=== PATIENT | male | born 1960 | race Caucasian/White ===

== ENCOUNTER 2019-07-06 14:45 | Emergency (ER) | payer BC ==
[2019-07-06 15:20] LABS: ALT 24 U/L (21-72); AST 26 U/L (17-59); African American GFR (CKD) >90 (>60 ml/min/1.73 sqM); Albumin 4.2 g/dL (3.5-5.0); Alkaline Phosphatase 85 U/L (38-126); Anion Gap 9 mmol/L; Blood Urea Nitrogen 17 mg/dL (9-20); Calcium 9.5 mg/dL (8.4-10.2); Carbon Dioxide 23 mmol/L (22-30); Chloride 109 mmol/L (98-107); Glucose 104 mg/dL (74-99); Potassium 4.4 mmol/L (3.5-5.1); Sodium 141 mmol/L (137-145); Total Bilirubin 0.6 mg/dL (0.2-1.3); Total Protein 7.2 g/dL (6.3-8.2)
[2019-07-06 15:26] LABS: Basophils # (A) 0.1 k/uL (0-0.2); Basophils % (A) 1 %; Eosinophils # (A) 0.1 k/uL (0-0.7); Eosinophils % (A) 1 %; HCT 43.5 % (39.0-53.0); HGB 14.5 gm/dL (13.0-17.5); Lymphocytes # (A) 1.4 k/uL (1.0-4.8); Lymphocytes % (A) 13 %; MCH 31.8 pg (25.0-35.0); MCHC 33.3 g/dL (31.0-37.0); MCV 95.7 fL (80.0-100.0); Mean Platelet Volume 7.3; Monocytes # (A) 0.6 k/uL (0-1.0); Monocytes % (A) 5 %; Neutrophils # (A) 8.5 k/uL (1.3-7.7); Neutrophils % (A) 79 %; Platelet Count 240 k/uL (150-450); RBC 4.55 m/uL (4.30-5.90); RDW 14.6 % (11.5-15.5); WBC 10.8 k/uL (3.8-10.6)
[2019-07-06 15:31] LABS: INR 0.9 (<1.2); Partial Thromboplastin Time 23.4 sec (22.0-30.0)
[2019-07-06] MEDS ORDERED: methylPREDNISolone SOD SUCCI 125 MG/2 ML VIAL IV STA (15:34)
[2019-07-06] MEDS ORDERED: diphenhydrAMINE 50 MG/ML 1 ML VIAL IVP STA (15:34)
[2019-07-06] MEDS ORDERED: FAMOTIDINE 20 MG/2 ML VIAL IV STA (15:34)
--- NOTE | 2019-07-06 15:40 | CT ---
EXAMINATION TYPE: CT brain wo con for TPA DATE OF EXAM: 07/06/2019 COMPARISON: None HISTORY: Right sided weakness. CT DLP: 1154.[address] of the brain was performed. The ventricles, basal cisterns and sulci overlying the cerebral convexities demonstrate mild enlargem ent. There is no evidence for intracranial hemorrhage or sulcal effacement. There is decreased attenuation about the periventricular white matter and deep white matter of both c erebral hemispheres, compatible with chronic small vessel ischemia. Differential diagnosis does inclu de demyelination. No mass effects are seen.No midline shift. Osseous calvarium is intact. If symptoms persist consider MRI. IMPRESSION: 1. Age related atrophic and chronic small vessel ischemic change without acute intracranial process s een at this time.
--- NOTE | 2019-07-06 15:40 | ED ---
General Adult HPI - General Chief complaint: Neuro Symptoms/Deficit Stated complaint: Poss Stroke Time Seen by Provider: 07/06/19 14:49 Source: patient, EMS, RN notes reviewed Mode of arrival: EMS Limitations: language barrier, altered mental status - History of Present Illness Initial comments: Patient is a pleasant 58-year-old male presenting to the emergency department with concerns for stroke. Onset of symptoms. EMS was a proximally 15 minutes p rior to being called. Patient has a different history. Patient does have expressive aphasia. Patient does appear to be answering questions affirmatively and negative correctly. Patient has difficulty with speech on top of this however. Patient believes his symptoms started yesterday afternoon. No family is present or coworkers are present at this time. Patient states he does not feel confused however does admit that his words are not coming out correctly. Patient does admit to having right-sided weakness. No history of similar symptoms previously. Patient denies any pain or injury. - Related Data Home Medications Medication Instructions Recorded Confirmed No Known Home Medications 07/06/19 07/06/19 Allergies Allergy/AdvReac Type Severity Reaction Status Date / Time iodine Allergy Swelling Verified 07/06/19 15:22 Review of Systems ROS Statement: Those systems with pertinent positive or pertinent negative responses have been documented in the HPI. ROS Other: All systems not noted in ROS Statement are negative. Constitutional: Denies: fever Eyes: Denies: eye pain ENT: Denies: ear pain Respiratory: Denies: cough Cardiovascular: Denies: chest pain Endocrine: Denies: fatigue Gastrointestinal: Denies: abdominal pain Genitourinary: Denies: dysuria Musculoskeletal: Denies: back pain Skin: Denies: rash Neurological: Reports: weakness. Denies: headache Past Medical History Past Medical History: No Reported History History of Any Multi-Drug Resistant Organisms: Unobtainable Past Surgical History: No Surgical Hx Reported Past Psychological History: Unable to Obtain Smoking Status: Current every day smoker Past Alcohol Use History: Daily Past Drug Use History: None Reported General Exam Limitations: language barrier, altered mental status General appearance: alert, in no apparent distress Head exam: Present: atraumatic Eye exam: Present: normal appearance, PERRL, EOMI. Absent: nystagmus ENT exam: Present: normal oropharynx Neck exam: Present: normal inspection Respiratory exam: Present: normal lung sounds bilaterally Cardiovascular Exam: Present: regular rate, normal rhythm GI/Abdominal exam: Present: soft. Absent: tenderness Extremities exam: Present: normal inspection Neurological exam: Present: alert, altered Expanded Neurological exam: Present: protecting the airway Patient oriented to: Present: person. Absent: place, time Speech: Present: expressive aphasia Cranial nerves: EOM's Intact: Normal, Facial Sensation: Normal Sensory exam: Upper Extremity Light Touch: Abnormal Right, Lower Extremity Light Touch: Normal Motor strength exam: RUE: 4, LUE: 5, RLE: 4, LLE: 5 Eye Response: (4) open spontaneously Motor Response: (6) obeys commands Verbal Response: (4) confused conversation Psychiatric exam: Present: normal affect, normal mood Skin exam: Present: normal color Course Vital Signs 07/06/19 07/06/19 07/06/19 14:50 15:05 15:20 Temperature Pulse Rate 98 96 97 Respiratory 18 18 18 Rate Blood Pressure 185/92 168/90 175/94 O2 Sat by Pulse 96 95 98 Oximetry 07/06/19 07/06/19 07/06/19 15:30 15:45 16:00 Temperature 98 F Pulse Rate 89 90 82 Respiratory 18 18 18 Rate Blood Pressure 147/85 144/82 161/93 O2 Sat by Pulse 99 99 Oximetry - Reevaluation(s) Reevaluation #1: 07/06/19 15:38 Last known well was up to 24 hours ago. Case was discussed in detail with Dr. Dmuont, who does not feel patient is a TPA candidate secondary to unknown onset. Nursing staff did talk with and established a last known well time was last night. This still puts patient outside of the TPA window. 07/06/19 16:25 Call was received from radiologist with concern for left-sided M1 MCA occlusion. Case was again discussed with Dr. dumont, who did review films and request transfer to [facility]. Case was also discussed with Dr. Felder, who will accept transfer. 07/06/19 16:27 Patient and family updated. EKG Findings - EKG Comments: EKG Findings:: Normal sinus rhythm 100. GA 162. QRS 106. QT 360. QTC 464. Normal axis. Normal QRS. No acute ST change. Medical Decision Making - Lab Data Result diagrams: 07/06/19 15:00 07/06/19 15:00 Lab Results 07/06/19 07/06/19 07/06/19 Range/Units 15:00 15:00 15:00 WBC 10.8 H (3.8-10.6) k/uL RBC 4.55 (4.30-5.90) m/uL Hgb 14.5 (13.0-17.5) gm/dL Hct 43.5 (39.0-53.0) % MCV 95.7 (80.0-100.0) fL MCH 31.8 (25.0-35.0) pg MCHC 33.3 (31.0-37.0) g/dL RDW 14.6 (11.5-15.5) % Plt Count 240 (150-450) k/uL Neutrophils % 79 % Lymphocytes % 13 % Monocytes % 5 % Eosinophils % 1 % Basophils % 1 % Neutrophils # 8.5 H (1.3-7.7) k/uL Lymphocytes # 1.4 (1.0-4.8) k/uL Monocytes # 0.6 (0-1.0) k/uL Eosinophils # 0.1 (0-0.7) k/uL Basophils # 0.1 (0-0.2) k/uL PT 10.0 (9.0-12.0) sec INR 0.9 (<1.2) APTT 23.4 (22.0-30.0) sec Sodium 141 (137-145) mmol/L Potassium 4.4 (3.5-5.1) mmol/L Chloride 109 H (98-107) mmol/L Carbon Dioxide 23 (22-30) mmol/L Anion Gap 9 mmol/L BUN 17 (9-20) mg/dL Creatinine 0.78 (0.66-1.25) mg/dL Est GFR (CKD-EPI)AfAm >90 (>60 ml/min/1.73 sqM) Est GFR (CKD-EPI)NonAf >90 (>60 ml/min/1.73 sqM) Glucose 104 H (74-99) mg/dL Calcium 9.5 (8.4-10.2) mg/dL Total Bilirubin 0.6 (0.2-1.3) mg/dL AST 26 (17-59) U/L ALT 24 (21-72) U/L Alkaline Phosphatase 85 (38-126) U/L Troponin I (0.000-0.034) ng/mL Total Protein 7.2 (6.3-8.2) g/dL Albumin 4.2 (3.5-5.0) g/dL 07/06/19 Range/Units 15:00 WBC (3.8-10.6) k/uL RBC (4.30-5.90) m/uL Hgb (13.0-17.5) gm/dL Hct (39.0-53.0) % MCV (80.0-100.0) fL MCH (25.0-35.0) pg MCHC (31.0-37.0) g/dL RDW (11.5-15.5) % Plt Count (150-450) k/uL Neutrophils % % Lymphocytes % % Monocytes % % Eosinophils % % Basophils % % Neutrophils # (1.3-7.7) k/uL Lymphocytes # (1.0-4.8) k/uL Monocytes # (0-1.0) k/uL Eosinophils # (0-0.7) k/uL Basophils # (0-0.2) k/uL PT (9.0-12.0) sec INR (<1.2) APTT (22.0-30.0) sec Sodium (137-145) mmol/L Potassium (3.5-5.1) mmol/L Chloride (98-107) mmol/L Carbon Dioxide (22-30) mmol/L Anion Gap mmol/L BUN (9-20) mg/dL Creatinine (0.66-1.25) mg/dL Est GFR (CKD-EPI)AfAm (>60 ml/min/1.73 sqM) Est GFR (CKD-EPI)NonAf (>60 ml/min/1.73 sqM) Glucose (74-99) mg/dL Calcium (8.4-10.2) mg/dL Total Bilirubin (0.2-1.3) mg/dL AST (17-59) U/L ALT (21-72) U/L Alkaline Phosphatase (38-126) U/L Troponin I <0.012 (0.000-0.034) ng/mL Total Protein (6.3-8.2) g/dL Albumin (3.5-5.0) g/dL Critical Care Time Critical Care Time: Yes Total Critical Care Time: 31 Disposition Clinical Impression: Cerebrovascular accident Disposition: OTHER INSTITUTION NOT DEFINED Is patient prescribed a controlled substance at d/c from ED?: No Referrals: None,Stated [Primary Care Provider] - 1-2 days Time of Disposition: 16:27 - Out of Hospital Transfer - Req. Specs Out of Hospital Transfer - Requested Specifics: Other Emergency Center
[2019-07-06 15:41] VITALS: RESP 18
[2019-07-06] MEDS ORDERED: ATORVASTATIN 80 MG TAB PO STA ×2 (15:52→16:26)
[2019-07-06] MEDS ORDERED: ASPIRIN 81 MG PO STA ×2 (15:52→16:25)
[2019-07-06 16:09] VITALS: TEMP 98
--- NOTE | 2019-07-06 16:09 | CT ---
EXAMINATION TYPE: CT angio head neck DATE OF EXAM: 07/06/2019 HISTORY: Right sided weakness. COMPARISON: CT of the head dated 07/06/2019 CT DLP: mGycm. Automated Exposure Control for Dose Reduction was Utilized. TECHNIQUE: CTA scan of the neck is performed with IV Contrast, patient injected with 50 mL of Isovue 370, axial images are obtained, coronal and sagittal reformatted images are reviewed. Three-D recons tructed images are created on an independent workstation and reviewed. FINDINGS: Severe narrowing or occlusion in the proximal left M1 which is best seen on axial imaging slice 26. T here is asymmetric enhancement of the cortical veins along the left frontal and parietal lobes, which is best seen on images 28-37. Contrast within the remaining portions of the anterior, middle and posterior cerebral arteries is sub optimal, but there does not appear to be a large aneurysm or occlusion. Mild calcified atheromatous plaques are seen at the origin of the great vessels. Bilateral common car otid arteries are patent. Calcified atheromatous plaques are seen at the origin of the bilateral inte rnal carotid arteries, slightly greater on the left causing less than 50% stenosis. Bilateral interna l carotid arteries are patent. Visualized upper lungs are clear. Mild emphysema in the lung apices. Multilevel cervical spondylosis most severe at C6-7 and C7-T1. IMPRESSION: Poor contrast bolus. Findings suggestive of left proximal M1 occlusion. Correlation with patient history of onset of sympt oms and consider interventional neuroradiology consultation for clot removal. These findings were discussed with Dr. Colin by Dr. Cherry at 3:57 PM on 07/06/2019.
[2019-07-06] MEDS ORDERED: TICAGRELOR 90 MG TAB PO STA (16:27)
[2019-07-06] MEDS ORDERED: SODIUM CHLORIDE 0.9% 500 ML 500 ML IV STA (16:39)
[2019-07-06] MEDS ORDERED: SODIUM CHLORIDE 0.9% 500 ML 500 ML IV ONE (16:40)
[2019-07-06 16:47] VITALS: BP 185/110; PULSE 80
--- NOTE | 2019-07-06 16:48 | XR ---
EXAMINATION TYPE: XR chest 1V portable DATE OF EXAM: 07/06/2019 COMPARISON: NONE HISTORY: Short of breath TECHNIQUE: Single frontal view of the chest is obtained. FINDINGS: There is no heart failure nor confluent pneumonic infiltrate. There is some mild linear in terstitial density at the lung bases. There are chest leads. IMPRESSION: No heart failure. Pulmonary fibrotic changes and subsegmental atelectasis at the lung ba ses.
== END 2019-07-06 16:50 | disposition other institution (70) ==
LOC: EC 14:45
DX: I63.9 Cerebral infarction, unspecified (principal); R29.709 NIHSS score 9; F17.200 Nicotine dependence, unspecified, uncomplicated; Z91.048 Other nonmedicinal substance allergy status
CPT/HCPCS: 96374; 96375 ×2; 36415; 93005; 80053; 84484; 85025; 85610; 85730; 71045; 70496; 70450; 70498; 99291; J1200; J2930; Q9967

== ENCOUNTER → 2022-01-02 | Outpatient (CLI) | payer BC ==
[2022-01-03 16:21] LABS: Cotinine 367.1 ng/mL (<2.0)
== END | disposition home or self-care (01) ==
LOC: LABWHC1 14:07
PROVIDERS: ATTEND Physician Assistant Medical
DX: Z00.00 Encounter for general adult medical examination without abnormal findings (principal); N52.01 Erectile dysfunction due to arterial insufficiency
CPT/HCPCS: 36415; 80323; 84153

== ENCOUNTER 2022-02-01 08:24 | Day surgery (SDC) | payer BC ==
[2022-01-30 16:04] VITALS: BMI 22.4
[~2022-02-01 08:24] MED LIST: LACTATED RINGERS 1,000 ML IV SCH
[2022-02-01 09:07] VITALS: RESP 16; TEMP 98
[2022-02-01] MEDS ORDERED: LIDOCAINE 1% (10MG/ML) FOR IV START INTRADERMA ONE (09:07)
--- NOTE | 2022-02-01 09:23 | P.GSHP ---
History of Present Illness H&P Date: 02/01/22 Chief Complaint: Screening colonoscopy This a 61-year-old male presents today for screening colonoscopy. Patient denies any significant GI complaints. Past Medical History Past Medical History: CVA/TIA, Hyperlipidemia, Hypertension Additional Past Medical History / Comment(s): STROKE 2019-NO RESIDUAL EFFECTS History of Any Multi-Drug Resistant Organisms: None Reported Past Surgical History: Orthopedic Surgery Additional Past Surgical History / Comment(s): VALENTINO CARP TUNNEL REP. RING FINGER SURGERY, ELECTROCUTED AND RING MELTED TO FINGER Past Anesthesia/Blood Transfusion Reactions: No Reported Reaction Past Psychological History: No Psychological Hx Reported Smoking Status: Former smoker Past Alcohol Use History: Occasional Past Drug Use History: Marijuana Medications and Allergies Home Medications Medication Instructions Recorded Confirmed Type Aspirin [Adult Low Dose Aspirin EC] 81 mg PO DAILY 01/30/22 02/01/22 History Atorvastatin [Lipitor] 80 mg PO HS 01/30/22 02/01/22 History Chlorthalidone [Hygroton] 12.5 mg PO DAILY 01/30/22 02/01/22 History amLODIPine [Norvasc] 5 mg PO DAILY 01/30/22 02/01/22 History Allergies Allergy/AdvReac Type Severity Reaction Status Date / Time codeine Allergy Rash/Hives Verified 02/01/22 09:02 iodine Allergy Swelling Verified 02/01/22 09:02 shellfish derived [Shellfish] Allergy Swelling Verified 02/01/22 09:02 Surgical - Exam Vital Signs Temp Pulse Resp BP Pulse Ox 98.0 F 63 16 157/77 98 02/01/22 09:06 02/01/22 09:06 02/01/22 09:06 02/01/22 09:06 02/01/22 09:06 - General well developed, well nourished, no distress - Eyes PERRL - ENT normal pinna - Neck no masses - Respiratory normal expansion - Cardiovascular Rhythm: regular - Abdomen Abdomen: soft, non tender Assessment and Plan Assessment: We'll perform screening colonoscopy
[2022-02-01] MEDS ORDERED: PROPOFOL 10 MG/ML 20 ML VIAL IV ONE (09:27)
--- NOTE | 2022-02-01 09:44 | P.OP ---
Date of Procedure: 02/01/22 Preoperative Diagnosis: Screening colonoscopy Postoperative Diagnosis: Normal colon Procedure(s) Performed: Colonoscopy Pathology: none sent Condition: stable Disposition: PACU Description of Procedure: PROCEDURE: The patient was placed on the endoscopy table in the lateral position. Digital rectal examination was performed which revealed no abnorma lities. The prostate was symmetrical without nodules. Flexible colonoscope was then placed in the patient's anus and passed throughout the entire colon. The ileocecal valve was visualized. The cecum, ascending, transverse, descending and sigmoid colon were normal. The rectum was normal as well. There were no masses, polyps or diverticula noted in the entire colon. SUMMARY OF FINDINGS: Normal colonoscopy.
[2022-02-01 10:03] VITALS: BP 117/73; PULSE 60
== END 2022-02-01 10:30 | disposition home or self-care (01) ==
LOC: ORWHC2ENDO 08:24
PROVIDERS: ATTEND Surgery
DX: Z12.11 Encounter for screening for malignant neoplasm of colon (principal); E78.5 Hyperlipidemia, unspecified; I10 Essential (primary) hypertension; Z86.73 Personal history of transient ischemic attack (TIA), and cerebral infarction without residual deficits; Z87.891 Personal history of nicotine dependence; Z98.890 Other specified postprocedural states; Z79.82 Long term (current) use of aspirin; Z79.899 Other long term (current) drug therapy; Z88.8 Allergy status to other drugs, medicaments and biological substances; Z88.5 Allergy status to narcotic agent; Z91.013 Allergy to seafood; Z97.2 Presence of dental prosthetic device (complete) (partial)
CPT/HCPCS: J2704; G0121; 45378

== ENCOUNTER 2023-07-24 16:44 | Emergency (ER) | payer BC ==
[2023-07-24 16:51] VITALS: TEMP 98.1
[2023-07-24 18:17] LABS: ALT 29 U/L (4-49); AST 31 U/L (17-59); African American GFR (CKD) >90 (>60 ml/min/1.73 sqM); Albumin 4.4 g/dL (3.5-5.0); Alkaline Phosphatase 78 U/L (38-126); Anion Gap 9 mmol/L; Blood Urea Nitrogen 18 mg/dL (9-20); Calcium 9.6 mg/dL (8.4-10.2); Carbon Dioxide 27 mmol/L (22-30); Chloride 102 mmol/L (98-107); Glucose 94 mg/dL (74-99); INR 0.9 (<1.2); Non-African American GFR(CKD) >90 (>60 ml/min/1.73 sqM); Potassium 3.7 mmol/L (3.5-5.1); Prothrombin Time 9.8 sec (9.0-12.0); Sodium 138 mmol/L (137-145); Total Bilirubin 0.8 mg/dL (0.2-1.3); Total Protein 7.3 g/dL (6.3-8.2)
[2023-07-24 18:19] LABS: Basophils % (A) 1 %; Eosinophils # (A) 0.2 k/uL (0-0.7); Eosinophils % (A) 2 %; HCT 47.4 % (39.0-53.0); HGB 16.5 gm/dL (13.0-17.5); Lymphocytes # (A) 1.6 k/uL (1.0-4.8); Lymphocytes % (A) 19 %; MCH 33.2 pg (25.0-35.0); MCHC 34.8 g/dL (31.0-37.0); MCV 95.5 fL (80.0-100.0); Mean Platelet Volume 7.6; Monocytes # (A) 0.7 k/uL (0-1.0); Monocytes % (A) 8 %; Neutrophils # (A) 5.7 k/uL (1.3-7.7); Neutrophils % (A) 68 %; Platelet Count 230 k/uL (150-450); RBC 4.96 m/uL (4.30-5.90); RDW 12.9 % (11.5-15.5); WBC 8.3 k/uL (3.8-10.6)
[2023-07-24 18:25] LABS: NT-Pro-B-Type Natriuretic Pept 86 pg/mL
--- NOTE | 2023-07-24 18:25 | ED ---
SOB HPI - General Chief Complaint: Shortness of Breath Stated Complaint: POSS BLOOD CLOT IN LUNG SENT BY PCP Time Seen by Provider: 07/24/23 16:52 Source: patient Mode of arrival: ambulatory Limitations: no limitations - History of Present Illness Initial Comments: 62-year-old male with past medical history of CVA who presents to the emergency department reporting pleuritic chest pain. States that for the past couple of days he has had left-sided chest pain with inspiration. Denies fevers, chills or cough. No history of PE or DVT. No lower extremity swelling. Denies history of coronary disease. Denies any chest wall trauma. He did go to his primary care office who felt that he needed to be evaluated for a PE and therefore was told to go to the emergency department. She does not take any blood thinners. No other alleviating, precipitating or modifying factors - Related Data Home Medications Medication Instructions Recorded Confirmed Aspirin [Adult Low Dose Aspirin EC] 81 mg PO DAILY 01/30/22 02/01/22 Atorvastatin [Lipitor] 80 mg PO HS 01/30/22 02/01/22 Chlorthalidone [Hygroton] 12.5 mg PO DAILY 01/30/22 02/01/22 amLODIPine [Norvasc] 5 mg PO DAILY 01/30/22 02/01/22 Previous Rx's Medication Instructions Recorded Albuterol Inhaler [Ventolin Hfa 2 puff INHALATION Q4HR #8 gm 07/24/23 Inhaler] Ibuprofen [Motrin] 800 mg PO Q8HR #30 tab 07/24/23 Allergies Allergy/AdvReac Type Severity Reaction Status Date / Time codeine Allergy Rash/Hives Verified 07/24/23 16:51 iodine Allergy Swelling Verified 07/24/23 16:51 shellfish derived [Shellfish] Allergy Swelling Verified 07/24/23 16:51 Review of Systems ROS Statement: Those systems with pertinent positive or pertinent negative responses have been documented in the HPI. ROS Other: All systems not noted in ROS Statement are negative. Past Medical History Past Medical History: CVA/TIA, Hyperlipidemia, Hypertension Additional Past Medical History / Comment(s): STROKE 2019-NO RESIDUAL EFFECTS History of Any Multi-Drug Resistant Organisms: None Reported Past Surgical History: Orthopedic Surgery Additional Past Surgical History / Comment(s): VALENTINO CARP TUNNEL REP. RING FINGER SURGERY, ELECTROCUTED AND RING MELTED TO FINGER Past Anesthesia/Blood Transfusion Reactions: No Reported Reaction Past Psychological History: No Psychological Hx Reported Smoking Status: Former smoker Past Alcohol Use History: Daily Past Drug Use History: Marijuana General Exam Limitations: no limitations General appearance: alert, in no apparent distress Head exam: Present: atraumatic, normocephalic, normal inspection Eye exam: Present: normal appearance, PERRL, EOMI. Absent: scleral icterus, conjunctival injection, periorbital swelling ENT exam: Present: normal exam, mucous membranes moist Neck exam: Present: normal inspection. Absent: tenderness, meningismus, lymphadenopathy Respiratory exam: Present: normal lung sounds bilaterally. Absent: respiratory distress, wheezes, rales, rhonchi, stridor Cardiovascular Exam: Present: regular rate, normal rhythm, normal heart sounds. Absent: systolic murmur, diastolic murmur, rubs, gallop, clicks GI/Abdominal exam: Present: soft, normal bowel sounds. Absent: distended, tenderness, guarding, rebound, rigid Extremities exam: Present: normal inspection, full ROM, normal capillary refill. Absent: tenderness, pedal edema, joint swelling, calf tenderness Back exam: Present: normal inspection Neurological exam: Present: alert, oriented X3, CN II-XII intact Psychiatric exam: Present: normal affect, normal mood Skin exam: Present: warm, dry, intact, normal color. Absent: rash Course Vital Signs 07/24/23 07/24/23 07/24/23 16:47 19:10 19:52 Temperature 98.1 F 98.1 F Pulse Rate 88 71 Respiratory 18 15 Rate Blood Pressure 163/94 157/92 O2 Sat by Pulse 95 94 L Oximetry Medical Decision Making - Medical Decision Making Was pt. sent in by a medical professional or institution (, PA, NETWORK INFRASTRUCTURE ARCHITECT, urgent care, hospital, or [facility]...) When possible be specific @ -Yes patient was sent in by his primary care office Did you speak to anyone other than the patient for history (EMS, parent, family, police, friend...)? What history was obtained from this source @ -No Did you review nursing and triage notes (agree or disagree)? Why? @ -I reviewed and agree with nursing and triage notes Were old charts reviewed (outside hosp., previous admission, EMS record, old EKG, old radiological studies, urgent care reports/EKG's, [facility] records)? Report findings @ -No old charts were reviewed Differential Diagnosis (chest pain, altered mental status, abdominal pain women, abdominal pain men, vaginal bleeding, weakness, fever, dyspnea, syncope, headache, dizziness, GI bleed, back pain, seizure, CVA, palpatations, mental health, musculoskeletal)? @ -Differential Chest Pain: Stable Angina, Unstable Angina, STEMI, NSTEMI Aortic Dissection, Pneumothorax, Musculoskeletal, Esophageal Spasm GERD, Cholecystitis, Pancreatitis, Zoster, this is not meant to be an all-inclusive list. EKG interpreted by me (3pts min.). @ -Yes and demonstrates sinus rhythm at a rate of 71. IN interval 157. QRS 99. QTC of 426. No acute ST segment elevations or depressions X-rays interpreted by me (1pt min.). @ -Yes and demonstrates no acute process CT interpreted by me (1pt min.). @ -None done U/S interpreted by me (1pt. min.). @ -None done What testing was considered but not performed or refused? (CT, X-rays, U/S, labs)? Why? @ -CT was considered however the patient has a negative d-dimer when age-ad justed What meds were considered but not given or refused? Why? @ -None Did you discuss the management of the patient with other professionals ( professionals i.e. , PA, NETWORK INFRASTRUCTURE ARCHITECT, lab, RT, psych nurse, director social, echometer engineer, teacher, forward air controller/air officer, counseling case manager)? Give summary @ -No Was smoking cessation discussed for >3mins.? @ -No Was critical care preformed (if so, how long)? @ -No Were there social determinants of health that impacted care today? How? (Homelessness, low income, unemployed, alcoholism, drug addiction, transpo rtation, low edu. Level, literacy, decrease access to med. care, [facility], rehab)? @ -No Was there de-escalation of care discussed even if they declined (Discuss DNR or withdrawal of care, Hospice)? DNR status @ -No What co-morbidities impacted this encounter? (DM, HTN, Smoking, COPD, CAD, Cancer, CVA, ARF, Chemo, Hep., AIDS, mental health diagnosis, sleep apnea, morbid obesity)? @ -None Was patient admitted / discharged? Hospital course, mention meds given and route, prescriptions, significant lab abnormalities, going to OR and other pertinent info. @ -Upon arrival patient was placed in room 5. A thorough history and physical exam was performed. IV access was established and laboratory studies were conducted. 12-lead EKG was obtained. Patient does have a low probability for PE and therefore a d-dimer is obtained which is negative when age-adjusted. Zarina st x-ray was performed. Results are reviewed with the patient. Patient has no signs of PE at this time. Results are discussed with the patient. States that he did have some improvement in his pain with Motrin and therefore patient will be placed on Motrin the outpatient setting with suspicion of the patient's symptoms are consistent with pleurisy. I also prescribed an inhaler. He is instructed to take the medications as directed. Follow-up with his doctor for further testing return for any new or worsening symptoms per patient was agreeable plan he was discharged in stable condition Undiagnosed new problem with uncertain prognosis? @ -Yes Drug Therapy requiring intensive monitoring for toxicity (Heparin, Nitro, Insulin, Cardizem)? @ -No Were any procedures done? @ -No Diagnosis/symptom? @ -Acute pleuritic chest pain Acute, or Chronic, or Acute on Chronic? @ -Acute Uncomplicated (without systemic symptoms) or Complicated (systemic symptoms)? @ -Complicated Side effects of treatment? @ -No Exacerbation, Progression, or Severe Exacerbation? @ -No Poses a threat to life or bodily function? How? (Chest pain, [place], [place], pneumonia, PE, COPD, DKA, ARF, appy, cholecystitis, CVA, Diverticulitis, Homicidal, Suicidal, threat to staff... and all critical care pts) @ -No - Lab Data Result diagrams: 07/24/23 17:47 07/24/23 17:47 Lab Results 07/24/23 07/24/23 07/24/23 Range/Units 17:47 17:47 17:47 WBC 8.3 (3.8-10.6) k/uL RBC 4.96 (4.30-5.90) m/uL Hgb 16.5 (13.0-17.5) gm/dL Hct 47.4 (39.0-53.0) % MCV 95.5 (80.0-100.0) fL MCH 33.2 (25.0-35.0) pg MCHC 34.8 (31.0-37.0) g/dL RDW 12.9 (11.5-15.5) % Plt Count 230 (150-450) k/uL MPV 7.6 Neutrophils % 68 % Lymphocytes % 19 % Monocytes % 8 % Eosinophils % 2 % Basophils % 1 % Neutrophils # 5.7 (1.3-7.7) k/uL Lymphocytes # 1.6 (1.0-4.8) k/uL Monocytes # 0.7 (0-1.0) k/uL Eosinophils # 0.2 (0-0.7) k/uL Basophils # 0.0 (0-0.2) k/uL PT 9.8 (9.0-12.0) sec INR 0.9 (<1.2) APTT 23.0 (22.0-30.0) sec D-Dimer 0.56 (<0.60) mg/L FEU Sodium 138 (137-145) mmol/L Potassium 3.7 (3.5-5.1) mmol/L Chloride 102 (98-107) mmol/L Carbon Dioxide 27 (22-30) mmol/L Anion Gap 9 mmol/L BUN 18 (9-20) mg/dL Creatinine 0.84 (0.66-1.25) mg/dL Est GFR (CKD-EPI)AfAm >90 (>60 ml/min/1.73 sqM) Est GFR (CKD-EPI)NonAf >90 (>60 ml/min/1.73 sqM) Glucose 94 (74-99) mg/dL Plasma Lactic Acid Bonifacio (0.7-2.0) mmol/L Calcium 9.6 (8.4-10.2) mg/dL Total Bilirubin 0.8 (0.2-1.3) mg/dL AST 31 (17-59) U/L ALT 29 (4-49) U/L Alkaline Phosphatase 78 (38-126) U/L Troponin I (0.000-0.034) ng/mL NT-Pro-B Natriuret Pep 86 pg/mL Total Protein 7.3 (6.3-8.2) g/dL Albumin 4.4 (3.5-5.0) g/dL 07/24/23 07/24/23 Range/Units 17:47 17:47 WBC (3.8-10.6) k/uL RBC (4.30-5.90) m/uL Hgb (13.0-17.5) gm/dL Hct (39.0-53.0) % MCV (80.0-100.0) fL MCH (25.0-35.0) pg MCHC (31.0-37.0) g/dL RDW (11.5-15.5) % Plt Count (150-450) k/uL MPV Neutrophils % % Lymphocytes % % Monocytes % % Eosinophils % % Basophils % % Neutrophils # (1.3-7.7) k/uL Lymphocytes # (1.0-4.8) k/uL Monocytes # (0-1.0) k/uL Eosinophils # (0-0.7) k/uL Basophils # (0-0.2) k/uL PT (9.0-12.0) sec INR (<1.2) APTT (22.0-30.0) sec D-Dimer (<0.60) mg/L FEU Sodium (137-145) mmol/L Potassium (3.5-5.1) mmol/L Chloride (98-107) mmol/L Carbon Dioxide (22-30) mmol/L Anion Gap mmol/L BUN (9-20) mg/dL Creatinine (0.66-1.25) mg/dL Est GFR (CKD-EPI)AfAm (>60 ml/min/1.73 sqM) Est GFR (CKD-EPI)NonAf (>60 ml/min/1.73 sqM) Glucose (74-99) mg/dL Plasma Lactic Acid Bonifacio 0.7 (0.7-2.0) mmol/L Calcium (8.4-10.2) mg/dL Total Bilirubin (0.2-1.3) mg/dL AST (17-59) U/L ALT (4-49) U/L Alkaline Phosphatase (38-126) U/L Troponin I <0.012 (0.000-0.034) ng/mL NT-Pro-B Natriuret Pep pg/mL Total Protein (6.3-8.2) g/dL Albumin (3.5-5.0) g/dL Disposition Clinical Impression: Pleuritic chest pain Disposition: HOME SELF-CARE Condition: Stable Instructions (If sedation given, give patient instructions): Pleurisy (ED) Additional Instructions: Please take the Motrin 800 mg every 8 hours. Use the inhaler 2 puffs every 4 hours. Follow-up with your doctor to ensure your symptoms are improving and return for any new or worsening symptoms Prescriptions: Ibuprofen [Motrin] 800 mg PO Q8HR #30 tab Albuterol Inhaler [Ventolin Hfa Inhaler] 2 puff INHALATION Q4HR #8 gm Is patient prescribed a controlled substance at d/c from ED?: No Referrals: Antonio Nguyen MD [Primary Care Provider] - 1-2 days Time of Disposition: 19:47
[2023-07-24 19:28] VITALS: BP 157/92; PULSE 71; RESP 15
--- NOTE | 2023-07-24 19:29 | XR ---
EXAMINATION TYPE: XR chest 2V DATE OF EXAM: 07/24/2023 COMPARISON: 07/06/2019 HISTORY: 62-year-old male cough and pain TECHNIQUE: PA and lateral views FINDINGS: Heart normal size. Atherosclerotic arch calcifications. Hyperinflation. Bilateral nipple shadows note d. Loop recorder device projects of the left mid lung. No consolidation or pleural effusion. Accentua josselyn mid thoracic kyphosis. IMPRESSION: COPD. No acute process seen.
== END 2023-07-24 19:53 | disposition home or self-care (01) ==
LOC: EC 16:44
DX: R07.81 Pleurodynia (principal); I10 Essential (primary) hypertension; E78.5 Hyperlipidemia, unspecified; F12.90 Cannabis use, unspecified, uncomplicated; Z79.82 Long term (current) use of aspirin; Z88.5 Allergy status to narcotic agent; Z91.013 Allergy to seafood; Z91.09 Other allergy status, other than to drugs and biological substances; Z86.73 Personal history of transient ischemic attack (TIA), and cerebral infarction without residual deficits; Z87.891 Personal history of nicotine dependence
CPT/HCPCS: 36415; 71046; 80053; 83605; 83880; 84484; 85025; 85379; 85610; 85730; 93005; 99285

== ENCOUNTER → 2024-12-04 | Outpatient (CLI) | payer MEDICARE ==
--- NOTE | 2024-12-04 10:44 | CTL ---
EXAMINATION TYPE: CT Low Dose Lung DATE OF EXAM: 12/04/2024 8:11 AM COMPARISON: Radiograph 07/24/2023 CLINICAL INDICATION: Male, 64 years old with history of Z12.2 LUNG CA SCR Z87.891 HX SMOKER, , Histor y of tobacco use. Former smoker quit 5 years ago, 45 pack-year history, currently smoking marijuana. TECHNIQUE: Low dose computed tomography scan was performed through the chest at 1 mm thick sections a nd reconstructed images in multiple planes at 1 mm and [address] DLP: 85.0 mGycm, Automated exposure control for dose reduction was used. CT DIAGNOSTIC QUALITY: Satisfactory FINDINGS: Loop recorder device projects at the left anterior chest wall. Heart normal size without pericardial effusion. Scattered three-vessel coronary artery calcifications are present. Aorta normal caliber with mild atherosclerotic arch calcifications and conventional arch vessel branc cj anatomy. Scattered nonenlarged mediastinal lymph nodes. No thoracic lymphadenopathy by CT size criteria. A few area of substance scattered strandy scarring or atelectasis. Moderate overall emphysematous erin nge. Minimal biapical pleural parenchymal scarring is present. No consolidation or pleural effusion. Mild diffuse bronchial wall thickening * 4 mm subpleural pulmonary nodule lateral right lung base, axial image 300. * Punctate 2 mm lateral right lower lobe pulmonary nodule, axial image to 39. * No suspicious pulmonary nodule is seen. Visualized upper abdomen shows [id number] atherosclerotic calcifications in the abdominal aorta with mild ectasia of the 2.7 cm. Bones: Accentuated midthoracic kyphosis with moderate degenerative disc disease here. IMPRESSION: 1. LungRADS 2, benign. A couple pulmonary nodules measuring up to 4 mm on baseline screening. 2. COPD with moderate emphysema. 3. Some scattered three-vessel coronary artery calcifications. CT LUNG RAD AND CT CHEST RECOMMENDATION: Lung-Rad 2 Benign Appearance or Behavior: Continue annual sc reening with LDCT in 12 months. S Modifier (other clinically significant findings): None [facility], , 12/04/2024 10:42 AM
== END | disposition home or self-care (01) ==
LOC: RADCTMAIN 07:42
PROVIDERS: ATTEND Family Medicine
DX: Z12.2 Encounter for screening for malignant neoplasm of respiratory organs (principal); Z87.891 Personal history of nicotine dependence; J44.9 Chronic obstructive pulmonary disease, unspecified; J43.9 Emphysema, unspecified; I25.10 Atherosclerotic heart disease of native coronary artery without angina pectoris
CPT/HCPCS: 71271